=== PATIENT | female | born 1990 | race Caucasian/White ===

== ENCOUNTER → 2018-07-17 09:42 | Outpatient (CLI) | payer OTHER, SELFPAY ==
[2018-07-17 10:57] LABS: Add Manual Diff / Slide Review NO; Basophils Percent Auto 0.4 % (0-2); Eosinophils Percent Auto 0.7 % (2-4); Hematocrit 41.6 % (36-46); Mean Corpuscular HGB Conc 33.6 % (30-36); Mean Corpuscular Volume 89.2 fL (80-100); Monocytes Percent Auto 4.9 % (3-14); Neutrophils Absolute Auto 6700 /uL (3000-5900); Platelet Count 175 X10^3/uL (150-400); Red Blood Cell Count 4.67 X10^6/uL (4.0-5.2); Red Cell Distribution Width 12.7 % (11.6-14.8)
[2018-07-17 12:35] LABS: HIV 1 and 2 Antibody NEGATIVE (NEGATIVE); Hep C Virus Ab w/Reflex Quant NEGATIVE s/c (NEGATIVE)
[2018-07-17 18:32] LABS: Hepatitis B Surface Antigen NEGATIVE s/c (NEGATIVE)
[2018-07-18 14:04] LABS: HSV 2 IGG AB < 0.90 index (< 0.90); HSV1IGG < 0.90 index (< 0.90)
[2018-07-18 18:44] LABS: RPR Screen Nonreactive (Nonreactive)
== END ==
PROVIDERS: PCP Nurse Practitioner Family; Visit Provider Obstetrics & Gynecology
DX: Z34.91 Encounter for supervision of normal pregnancy, unspecified, first trimester (principal)
CPT/HCPCS: 36415; 80055; 86695; 86696; 86703; 86787; 86803; 86850; 86900; 86901; 87086

== ENCOUNTER 2018-09-11 15:20 | Emergency (ER) | payer OTHER, SELFPAY ==
[2018-09-11 15:36] VITALS: BP 99/54; PULSE 70; RESP 14; TEMP 36.7; O2SAT 97
--- NOTE | 2018-09-11 17:50 | ED_ITS ---
HPI - Nausea/Vomiting/Diarrhea <EBEN Lyman - Last Filed: 09/11/18 21:37> General Chief complaint: Nausea/Vomiting/Diarrhea Stated complaint: NON STOP DIARRHEA Time Seen by Provider: 09/11/18 17:05 Source: patient Mode of arrival: ambulatory Limitations: no limitations History of Present Illness HPI Narrative: 28-year-old female that is currently approximately 16 weeks is 2 para 1 here for complaint of diarrhea over the past 2 days. She denies any abdominal pain. No fevers no chills. No urinary symptoms. She denies any nausea vomiting. Positive p.o. intake that she is tolerating well. She denies any changes in diet. No recent travel. She denies any contacts with similar symptoms. No other concerns or complaints at this timeframe. MD complaint: diarrhea Related Data Home Medications Medication Instructions Recorded Confirmed 1 tab PO DAILY 07/17/18 09/11/18 vitamin,calcium,tfqhmeua-qmzn-ogomv acid tablet Allergies Allergy/AdvReac Type Severity Reaction Status Date / Time pecan nut [PECAN NUT] Allergy Unknown Verified 09/11/18 15:39 walnut [WALNUT] Allergy Unknown Verified 09/11/18 15:39 Review of Systems <EBEN Lyman - Last Filed: 09/11/18 21:37> Constitutional Denies chills, Denies fever(s), Denies lethargy and Denies weakness Eyes Denies change in vision, Denies eye discharge, Denies irritation and Denies loss of vision ENT Ears, Nose, Mouth, and Throat: Denies change in voice, Denies neck pain and Denies sore throat Cardiovascular Denies chest pain, Denies irregular heart rhythm, Denies lightheadedness, Denies palpitations, Denies dyspnea, Denies dyspnea on exertion and Denies orthopnea Respiratory Denies cough, Denies dyspnea, Denies dyspnea on exertion and Denies wheezing Gastrointestinal Gastrointestinal: Reports diarrhea Genitourinary Denies hematuria, Denies flank pain, Denies urinary incontinence and Denies urinary urgency Musculoskeletal Denies neck pain Integumentary/Breasts Denies pruritus, Denies erythema, Denies rash and Denies wounds Neurologic Denies confusion, Denies loss of vision and Denies weakness Psychiatric Denies anxiety, Denies confusion, Denies depression, Denies homicidal ideation and Denies suicidal ideation Endocrine Denies palpitations Hematologic/Lymphatic Denies easy bruising Allergic/Immunologic Denies wheezing Exam <EBEN Lyman - Last Filed: 09/11/18 21:37> Initial Vital Signs Initial Vital Signs: Vital Signs Temperature 98.1 F 09/11/18 15:36 Pulse Rate 70 09/11/18 15:36 Respiratory Rate 14 09/11/18 15:36 Blood Pressure 99/54 L 09/11/18 15:36 Pulse Oximetry 97 09/11/18 15:36 Const General: cooperative and well developed Nutritional Appearance: well nourished Orientation: alert, awake, oriented x3 and not confused HENLA Mouth: oral mucosae normal and moist mucous membranes Eyes Conjunctivae: conjunctivae normal Sclera: sclerae normal Pupils: PERRL EOM: EOM intact bilaterally Resp Effort & Inspection: normal respiratory effort, able to speak in complete sentences, no respiratory distress and no use of accessory muscles Auscultation: clear to auscultation bilaterally, no rales, no rhonchi and no wheezes Cardio Rate: regular rate Rhythm: regular rhythm Heart Sounds: no click, no gallops, no murmurs and no rubs Pulses: normal peripheral pulses GI Inspection: non-distended Palpation: soft, no hepatosplenomegaly, No guarding, No pulsatile mass and No tender Auscultation: normal bowel sounds General: No CVA tenderness Skin General: no rashes or lesions noted, No jaundice and No petechiae Neuro General: alert, oriented x3, gait normal and no focal motor deficits Speech: speech normal <Antoine Klein DO - Last Filed: 09/13/18 03:52> Initial Vital Signs Initial Vital Signs: Vital Signs Temperature 98.1 F 09/11/18 15:36 Pulse Rate 70 09/11/18 15:36 Respiratory Rate 14 09/11/18 15:36 Blood Pressure 99/54 L 09/11/18 15:36 Pulse Oximetry 97 09/11/18 15:36 Course <EBEN Lyman - Last Filed: 09/11/18 21:37> Vital Signs - 8 hr 09/11/18 15:36 Temperature 98.1 F Pulse Rate 70 Respiratory Rate 14 Blood Pressure 99/54 L Pulse Oximetry 97 <Antoine Klein DO - Last Filed: 09/13/18 03:52> Vital Signs - 8 hr 09/11/18 15:36 Temperature 98.1 F Pulse Rate 70 Respiratory Rate 14 Blood Pressure 99/54 L Pulse Oximetry 97 MDM - Nausea/Vomiting/Diarrhea <EBEN Lyman - Last Filed: 09/11/18 21:37> Lab Data Urine Dip Bedside Urine Glucose Negative Bedside Urine Bilirubin - Negative Bedside Urine Ketone - Negative Urine Specific [place] 1.010 Bedside Urine Occult Blood - Negative Bedside Urine pH 7.5 Bedside Urine Protein - Negative Bedside Urine Urobilinogen - Negative Bedside Urine Nitrite - Negative Bedside Urine Leukocytes - Negative Esterase MDM Narrative Medical decision making narrative: Urinalysis was negative for urinary tract infection. Final signs or normal. Not appreciate any signs of dehydration at this time. She is able tolerate p.o. fluids. Discussed risks versus reward for treating acute diarrhea with loperamide patient decided that she would rather suffer the symptoms of the diarrhea then using medication at this time. heart tones were obtained and were normal. Signs and symptoms presents as a viral illness at this point. Follow up with primary care provider/Ob in the next several days for re-evaluation. For any worsening symptoms return emergency room. <Antoine Klein DO - Last Filed: 09/13/18 03:52> Lab Data Urine Dip Bedside Urine Glucose Negative Bedside Urine Bilirubin - Negative Bedside Urine Ketone - Negative Urine Specific [place] 1.010 Bedside Urine Occult Blood - Negative Bedside Urine pH 7.5 Bedside Urine Protein - Negative Bedside Urine Urobilinogen - Negative Bedside Urine Nitrite - Negative Bedside Urine Leukocytes - Negative Esterase Discharge Plan Departure Patient Disposition: Home Clinical Impression: Diarrhea Discharge Date/Time: 09/11/18 19:32 Interventions: ED Discharge Assessment Last Done: 09/11/18 19:32 Instructions: Diarrhea Activity Restrictions/Additional Instructions: Urinalysis today was unremarkable. Sinus symptoms presents as viral illness. Plenty of fluids and rest. Follow up with her primary care provider in the next several days for re-evaluation. For any worsening symptoms return to the emergency room. Prescriptions: No Action prenat.vits,juan josé,[id number] tablet 1 tab PO DAILY RF: 0 Referrals: Aiyana Ba ARNP [Primary Care Provider] - <Antoine Klein DO - Last Filed: 09/13/18 03:52> Cosign ED Attending Cosignature Attestation: I was immediately available in the department for consultation. Documentation has been reviewed. I agree with assessment and plan.
== END 2018-09-11 19:32 | disposition home or self-care (01) ==
PROVIDERS: Emergency Provider Nurse Practitioner Family; PCP Nurse Practitioner Family
DX: R19.7 Diarrhea, unspecified (principal)
CPT/HCPCS: 81003; 99283

== ENCOUNTER → 2018-09-27 11:55 | Outpatient (CLI) | payer OTHER, SELFPAY ==
[2018-10-02 10:39] LABS: AFP, Serum 37.1 ng/mL; Calc Gestational Age 18.6; Cigarette Smoker N; Donated Egg NOT GIVEN; Donor Egg Age NOT GIVEN; Inhibin A, Dimeric 118 pg/mL; Maternal Weight 150 lbs; Number of Fetuses 1; Previous Pregnancy Down Syndro NOT GIVEN; hCG, MoM 0.73; hCG, Serum 16.4 IU/mL
== END ==
PROVIDERS: PCP Physician Assistant; Visit Provider Obstetrics & Gynecology
DX: O34.219 Maternal care for unspecified type scar from previous cesarean delivery (principal); Z3A.18 18 weeks gestation of pregnancy
CPT/HCPCS: 36415; 82105; 82677; 84702; 86336

== ENCOUNTER → 2018-09-29 14:05 | Outpatient (CLI) | payer OTHER, SELFPAY ==
--- NOTE | 2018-09-29 14:06 | DI.US.S_ITS ---
PROCEDURE: US OB >= 14 WEEKS FETUS INDICATIONS: ANATOMY SURVEY OUTSIDE/PRIOR DATING DATA: Last menstrual period (LMP): 05/21/18. LMP-based estimated date of delivery (SAKINA): 02/24/19. First dating scan (date and location): 08/01/18. Estimated date of delivery (SAKINA) from first dating scan: 02/27/19. TECHNIQUE: Real-time scanning was performed of the fetus, with image documentation and biometric measurements. Endovaginal scanning: No COMPARISON: [email or web address], , OB >= 14 WEEKS FETUS, 09/27/2018, 11:25. FINDINGS: General: A single living intrauterine gestation is present. Presentation: Breech. Placenta: Placental position is anterior, and low lying with the inferior margin of the placenta 1.8 cm above the internal cervical os. Amniotic fluid index: 9.1 cm, normal range is 5-24 cm. heart rate: 137 beats per minute. Maternal cervical canal: 3.2 cm long. biometrics: Biparietal diameter: 18 weeks 2 days Head circumference: 18 weeks 1 day Abdominal circumference: 18 weeks 4 days Femur length: 18 weeks 3 days Estimated gestational age from initial scan: 18 weeks 3 days Composite gestational age from present scan: 18 weeks 3 days Estimated weight and percentile: 242 g; 48 percentile Measurement variability for biometric dating: +/- 7 days from 14 weeks to 15 weeks 6 days gestation, +/- 10 days from 16 weeks to 21 weeks 6 days gestation, +/- 2 weeks from 22 weeks to 27 weeks 6 days gestation, +/- 3 weeks for 28 weeks gestation or later. weight reference: 4500 g or EFW >90/95% is considered macrosomia or large for gestational age. EFW <10% is small for gestational age. EFW 5% or less is considered intra-uterine growth restriction. Anatomic survey: Neuro: Ventricles are non-dilated at less than 10 mm. Cisterna magna is normal at 3-11 mm. Cerebellum is normal in size and morphology. Nuchal skin fold: Normal at less than 6 mm between 14-21 weeks gestational age. Face: Nose and lips, facial profile are normal. Spine: No evidence for spina bifida. Heart: 4-chambered heart is present, with normal ventricular outflow tracts. Diaphragm: Diaphragm is intact. Stomach: Left-sided stomach is present. Kidneys: No hydronephrosis. Normal is less than 5 mm in 2nd trimester, less than 7 mm in 3rd trimester. Cord: 3-vessel cord has orthotopic insertion. Bladder: Normal in size. Extremities: All 4 extremities identified. IMPRESSION: Single living IUP redemonstrated and normal interval growth. Normal anatomic survey. Dictated by: Kushal MCGUIRE Interpreted: Speedy Mcgill MD on 09/29/2018 at 15:58 Approved by: Speedy Mcgill M.D. on 09/29/2018 at 17:24
== END ==
PROVIDERS: PCP Physician Assistant; Visit Provider Obstetrics & Gynecology
DX: Z34.82 Encounter for supervision of other normal pregnancy, second trimester (principal); Z36.89 Encounter for other specified antenatal screening; Z3A.18 18 weeks gestation of pregnancy
CPT/HCPCS: 76811

== ENCOUNTER 2018-11-08 17:24 | Emergency (ER) | payer OTHER, SELFPAY ==
[2018-11-08 17:35] VITALS: BP 101/66; PULSE 118; RESP 17; TEMP 36.6; O2SAT 99; BMI 22.8
--- NOTE | 2018-11-08 18:10 | ED.SOB ---
HPI - SOB/Dyspnea General Chief Complaint: Shortness of Breath/Dyspnea Stated Complaint: bad ear infection, 20 wks+ prg, high hr, sob Time Seen by Provider: 11/08/18 18:09 Source: patient Mode of arrival: ambulatory Limitations: no limitations History of Present Illness Patient is a 28-year-old G 2 P 1 sent over for evaluation of possible pulmonary embolism. Patient states that she has had coughing and shortness of breath for the past several days. She did does have some recent travel. Had a flu test couple days ago that was negative. Talked with her OB provider who told her that she should come to the emergency department for evaluation of a possible clot. Patient denies any chest pain. No lower extremity swelling. No abdominal pain or vaginal bleeding or loss of fluid. Related Data Home Medications Medication Instructions Recorded Confirmed 1 tab PO DAILY 07/17/18 09/11/18 vitamin,calcium,dfnuwcwj-tbkp-bcuxa acid tablet Previous Rx's Medication Instructions Recorded oseltamivir [Tamiflu] 75 mg PO Q12H 5 Days #10 cap 11/08/18 Allergies Allergy/AdvReac Type Severity Reaction Status Date / Time pecan nut [PECAN NUT] Allergy Unknown Verified 11/08/18 17:35 walnut [WALNUT] Allergy Unknown Verified 11/08/18 17:35 Review of Systems Constitutional Reports chills and Reports fatigue Cardiovascular Denies chest pain, Denies palpitations and Reports dyspnea Respiratory Reports cough and Reports dyspnea Gastrointestinal Gastrointestinal: Denies abdominal pain, Denies nausea and Denies vomiting Genitourinary Denies dysuria and Denies vaginal discharge Musculoskeletal Denies myalgias and Denies arthralgias Integumentary/Breasts Denies lesions and Denies rash Neurologic Denies behavioral changes Psychiatric Denies behavioral changes Endocrine Reports fatigue and Denies palpitations Hematologic/Lymphatic Denies easy bleeding and Denies easy bruising [facility] Medical History Healthy adult (Acute) Social History Smoking Status: Never smoker Social History Smoking Status: Never smoker Exam Initial Vital Signs Initial Vital Signs: Vital Signs Temperature 97.9 F 11/08/18 17:35 Pulse Rate 118 H 11/08/18 17:35 Respiratory Rate 17 11/08/18 17:35 Blood Pressure 101/66 11/08/18 17:35 Pulse Oximetry 99 11/08/18 17:35 Const General: cooperative, healthy appearing, comfortable, well developed, well groomed and No acute distress Orientation: alert, awake and oriented x3 HENMT Head: normal to inspection and normocephalic Resp Effort & Inspection: normal respiratory effort, not labored, no respiratory distress, no retractions and not tachypneic Auscultation: clear to auscultation bilaterally Cardio Rate: tachycardic Rhythm: regular rhythm Pulses: radial pulses present GI Palpation: No tender Skin Lesions: no lesions Rashes: no rashes Neuro General: alert, awake and oriented x3 Cognition: normal cognition Speech: speech normal Extrem General: normal to inspection and capillary refill normal Psych Appearance: grossly normal and well kempt Course Orders Ordered: ED Orders 11/08/18 19:30 Basic Metabolic Panel Stat Complete Blood Count AUTO DIFF Stat Influenza A and B by PCR Rapid Stat 11/08/18 19:57 XR chest 1V Stat Discontinued Medications Acetaminophen (Tylenol) 650 mg PO NOW ONE Stop: 11/08/18 19:36 Last Admin: 11/08/18 19:47 Dose: 650 mg Sodium Chloride (Normal Saline 0.9%) 1,000 mls @ 1,000 mls/hr IV BOLUS ONE Stop: 11/08/18 19:31 Last Infusion: 11/08/18 21:45 Dose: 0 mls/hr Admin: 11/08/18 19:48 Dose: 1,000 mls/hr Oseltamivir Phosphate (Tamiflu) 75 mg PO NOW ONE Stop: 11/08/18 20:20 Last Admin: 11/08/18 20:37 Dose: 75 mg Vital Signs - 8 hr 11/08/18 21:45 Temperature 100 F H Pulse Rate 87 Respiratory Rate 19 Blood Pressure 106/51 L Pulse Oximetry 97 MDM - SOB/Dyspnea Lab Data Attestation: I reviewed the patient's lab results. Result diagrams: 11/08/18 19:30 11/08/18 19:30 Lab Results 11/08/18 11/08/18 11/08/18 Range/Units 19:30 19:30 19:30 WBC 16.1 H (4.5-11.0) X10^3/uL RBC 4.50 (4.0-5.2) X10^6/uL Hgb 13.7 (12.0-16.0) g/dL Hct 40.2 (36-46) % MCV 89.3 (80-100) fL MCH 30.4 (26-34) PG MCHC 34.1 (30-36) % RDW 13.2 (11.6-14.8) % Plt Count 156 (150-400) X10^3/uL Neut % (Auto) 88.6 H (50-75) % Lymph % (Auto) 6.4 L (25-40) % [place] % (Auto) 4.7 (3-14) % Eos % (Auto) 0.0 L (2-4) % Baso % (Auto) 0.3 (0-2) % Neut # (Auto) 40318 H (5458-6853) /uL Lymph # (Auto) 1000 L (1733-9861) /uL [place] # (Auto) 700 (0-900) /uL Eos # (Auto) 0 (0-450) /uL Baso # (Auto) 0 (0-100) /uL Sodium 135 L (137-145) mmol/L Potassium 3.6 (3.4-5.1) mmol/L Chloride 101 (98-107) mmol/L Carbon Dioxide 22 (22-32) mmol/L BUN 8 (7-17) mg/dL Creatinine 0.70 (0.52-1.04) mg/dL Estimated GFR > 60.0 (>60) mL/min BUN/Creatinine Ratio 11.4 (6-22) Glucose 110 H (70-100) mg/dL Calcium 9.2 (8.4-10.2) mg/dL Influenza A & B (PCR) Positive, type a A (Negative) Imaging Data Chest x-ray: Radiologist's impression: [address] [address] XRay Report Signed Patient: Slava Mansfield#: [id number] : 1990Acct:[id number] Age/Sex: 28 / FDate of Service: 11/08/18 Loc: ED Accession Number: [id number] Procedure: XR chest 1V Ordering Provider: Irineo Nichole D.O. PROCEDURE: XR CHEST 1V INDICATIONS: Fever, cough, flu positive TECHNIQUE: One view of the chest was acquired. COMPARISON: None. FINDINGS: Surgical changes and devices: None. Lungs and pleura: Mild peribronchial thickening in the mid to lower lung pope. No consolidations. No pleural effusions or pneumothorax. Mediastinum: Mediastinal contours appear normal. Heart size is normal. Bones and chest wall: No suspicious bony lesions. Overlying soft tissues appear unremarkable. IMPRESSION: Changes of bronchitis. No dense consolidation to suggest pneumonia Dictated by: Mary Taylor M.D. on 11/08/2018 at 20:49 Approved by: Mary Taylor M.D. on 11/08/2018 at 20:50 ECG Data Attestation: I personally reviewed and interpreted this ECG as follows: Prior ECG tracings: not available for review Interpretation: Sinus rhythm Ventricular rate of 97 Normal axis Normal QRS Normal QTC No ST T wave changes MDM Narrative Medical decision making narrative: Had a discussion with the patient upon arrival regarding the risks and benefits of a CTA for evaluation of a pulmonary embolism. She is not in any respiratory distress but does have some shortness of breath and is and has had recent travel. While waiting for her lab tests returned in order to obtain the CTA the patient's flu test came back positive. I went back and talked to the patient. I do suspect that her symptoms today are caused by the flu. I feel that pulmonary embolism is unlikely. I informed the patient that if I had seen her in the department as she had not been I would not have obtained a CTA given her symptoms and the positive flu test. I did inform her that she was at higher risk because of being however in the setting of the flu and the fact that she was hemodynamically stable, and not hypoxic it would not be be unreasonable to hold on a CTA to avoid the radiation exposure to the baby. Patient agreed. Her is at bedside his discussions. We held on a CTA. She was given Tamiflu and a prescription for Tamiflu given her status. We did obtain a chest x-ray to evaluate for pneumonia which was not the case. The patient was given return precautions. There were no other issues with regard to the . She and her both expressed understanding and agreement with plan. Discharge Plan Departure Patient Disposition: Home Clinical Impression: Influenza Otitis media Qualifiers: Otitis media type: serous Chronicity: acute Laterality: bilateral Recurrence: not specified as recurrent Qualified Code(s): H65.03 - Acute serous otitis media, bilateral Discharge Date/Time: 11/08/18 21:45 Interventions: ED Discharge Assessment Last Done: 11/08/18 21:45 Instructions: Influenza Activity Restrictions/Additional Instructions: Take the Tamiflu as directed. You can also take Tylenol. Do not take ibuprofen/Motrin. Increase your fluid intake. Contact your OB doctor tomorrow. Also recommend you take a decongestant such as Claritin or Nohemi or Zyrtec. Return to the emergency department for any new or worsening symptoms Prescriptions: New oseltamivir [Tamiflu] 75 mg capsule 75 mg PO Q12H 5 Days Qty: 10 RF: 0 No Action prenat.vits,juan josé,dwe-[id number] tablet 1 tab PO DAILY RF: 0 Referrals: Evelin Thao PA-C [Primary Care Provider] -
[2018-11-08 19:39] LABS: Add Manual Diff / Slide Review NO; Basophils Absolute Auto 0 /uL (0-100); Basophils Percent Auto 0.3 % (0-2); Eosinophils Absolute Auto 0 /uL (0-450); Hematocrit 40.2 % (36-46); Hemoglobin 13.7 g/dL (12.0-16.0); Lymphocytes Absolute Auto 1000 /uL (1100-4500); Lymphocytes Percent Auto 6.4 % (25-40); Mean Corpuscular HGB Conc 34.1 % (30-36); Mean Corpuscular Hemoglobin 30.4 PG (26-34); Mean Corpuscular Volume 89.3 fL (80-100); Monocytes Absolute Auto 700 /uL (0-900); Monocytes Percent Auto 4.7 % (3-14); Neutrophils Absolute Auto 14200 /uL (1500-7000); Neutrophils Percent Auto 88.6 % (50-75); Platelet Count 156 X10^3/uL (150-400); Red Cell Distribution Width 13.2 % (11.6-14.8); White Blood Cell Count 16.1 X10^3/uL (4.5-11.0)
[2018-11-08 19:47] VITALS: TEMP 37.9
[2018-11-08] MEDS: ACETAMINOPHEN 325 MG TABLET 650 MG PO (19:47)
[2018-11-08] MEDS: SODIUM CHLORIDE 0.9% 1,000 ML 1000 ML IV (19:48)
[2018-11-08 19:51] LABS: BUN Creatinine Ratio 11.4 (6-22); Blood Urea Nitrogen 8 mg/dL (7-17); Calcium 9.2 mg/dL (8.4-10.2); Carbon Dioxide 22 mmol/L (22-32); Chloride 101 mmol/L (98-107); Estimated Glomerular Filt Rate > 60.0 mL/min (>60); Glucose 110 mg/dL (70-100); HEMOLYSIS < 15 (0-50); Potassium 3.6 mmol/L (3.4-5.1); Sodium 135 mmol/L (137-145)
--- NOTE | 2018-11-08 19:57 | DI.RAD.S_ITS ---
PROCEDURE: XR CHEST 1V INDICATIONS: Fever, cough, flu positive TECHNIQUE: One view of the chest was acquired. COMPARISON: None. FINDINGS: Surgical changes and devices: None. Lungs and pleura: Mild peribronchial thickening in the mid to lower lung pope. No consolidations. No pleural effusions or pneumothorax. Mediastinum: Mediastinal contours appear normal. Heart size is normal. Bones and chest wall: No suspicious bony lesions. Overlying soft tissues appear unremarkable. IMPRESSION: Changes of bronchitis. No dense consolidation to suggest pneumonia Dictated by: Mary Taylor M.D. on 11/08/2018 at 20:49 Approved by: Mary Taylor M.D. on 11/08/2018 at 20:50
[2018-11-08] MEDS: OSELTAMIVIR 75 MG CAPSULE PO (20:37)
[2018-11-08 21:45] VITALS: BP 106/51; PULSE 87; RESP 19; TEMP 37.7; TEMP 37.8; O2SAT 97
== END 2018-11-08 21:45 | disposition home or self-care (01) ==
PROVIDERS: Emergency Provider Emergency Medicine; PCP Physician Assistant
DX: J11.1 Influenza due to unidentified influenza virus with other respiratory manifestations (principal); H65.03 Acute serous otitis media, bilateral
CPT/HCPCS: 36591; 71045; 80048; 85025; 87400; 93005; 96360; 96361; 99283; 99285

== ENCOUNTER → 2018-11-20 14:26 | Outpatient (CLI) | payer OTHER, SELFPAY ==
[2018-11-20 16:35] LABS: Hematocrit 35.7 % (36-46); Hemoglobin 12.1 g/dL (12.0-16.0)
[2018-11-20 17:01] LABS: GTT (PREG) 1 Hour PP 50gm Dose 165 mg/dL (76-139)
== END ==
PROVIDERS: PCP Physician Assistant; Visit Provider Obstetrics & Gynecology
DX: Z34.82 Encounter for supervision of other normal pregnancy, second trimester (principal)
CPT/HCPCS: 36415; 82950; 85014; 85018

== ENCOUNTER → 2018-11-27 08:55 | Outpatient (CLI) | payer OTHER, SELFPAY ==
[2018-11-27 10:05] LABS: Glucose Fasting Gestational 74 mg/dL (76-95)
[2018-11-27 11:35] LABS: Glucose 1 Hour Gest 162 mg/dL (76-180)
[2018-11-27 12:18] LABS: Glucose Tol Interp,Gestational INTERPRETATION
[2018-11-27 15:49] LABS: Glucose 3 Hour Gest 117 mg/dL (76-140)
[2018-11-27 20:17] LABS: Glucose 2 Hour Gest 126 mg/dL (76-155)
== END ==
PROVIDERS: PCP Physician Assistant; Visit Provider Obstetrics & Gynecology
DX: O99.810 Abnormal glucose complicating pregnancy (principal)
CPT/HCPCS: 36415; 82951; 82952

== ENCOUNTER 2018-12-27 12:09 | Emergency (ER) | payer OTHER, SELFPAY ==
[2018-12-27] VITALS (7 sets, daily range): BP systolic 91–143; BP diastolic 49–81; PULSE 62–91; RESP 14–21; TEMP 36.7; O2SAT 93–99; BMI 23.2
[2018-12-27 12:59] LABS: Add Manual Diff / Slide Review NO; Basophils Absolute Auto 0 /uL (0-100); Basophils Percent Auto 0.3 % (0-2); Eosinophils Absolute Auto 100 /uL (0-450); Eosinophils Percent Auto 0.3 % (2-4); Hematocrit 37.8 % (36-46); Hemoglobin 12.6 g/dL (12.0-16.0); Lymphocytes Absolute Auto 1100 /uL (1100-4500); Lymphocytes Percent Auto 6.6 % (25-40); Mean Corpuscular HGB Conc 33.4 % (30-36); Mean Corpuscular Hemoglobin 29.8 PG (26-34); Mean Corpuscular Volume 89.2 fL (80-100); Monocytes Absolute Auto 800 /uL (0-900); Monocytes Percent Auto 4.9 % (3-14); Neutrophils Absolute Auto 14800 /uL (1500-7000); Neutrophils Percent Auto 87.9 % (50-75); Platelet Count 192 X10^3/uL (150-400); Red Blood Cell Count 4.24 X10^6/uL (4.0-5.2); Red Cell Distribution Width 13.5 % (11.6-14.8); White Blood Cell Count 16.8 X10^3/uL (4.5-11.0)
[2018-12-27 13:07] LABS: Prothrombin Time 11.3 SECONDS (10.1-12.7)
[2018-12-27 13:09] LABS: PTT Partial Thromboplastin Tim 24 SECONDS (26.4-36.2)
[2018-12-27 13:12] LABS: Alanine Aminotransferase 46 IU/L (9-52); Albumin 4.1 g/dL (3.5-5.0); Albumin Globulin Ratio 1.3 (1.0-2.8); Alkaline Phosphatase 123 U/L (38-126); Aspartate Aminotransferase 30 IU/L (14-36); BUN Creatinine Ratio 13.3 (6-22); Bilirubin Total 0.3 mg/dL (0.2-1.3); Blood Urea Nitrogen 8 mg/dL (7-17); Calcium 9.5 mg/dL (8.4-10.2); Carbon Dioxide 22 mmol/L (22-32); Chloride 106 mmol/L (98-107); Creatine Kinase 36 U/L (30-135); Estimated Glomerular Filt Rate > 60.0 mL/min (>60); Globulin 3.2 g/dL (1.7-4.1); Glucose 89 mg/dL (70-100); HEMOLYSIS < 15 (0-50); Lipase 62 U/L (23-300); Potassium 3.7 mmol/L (3.4-5.1); Sodium 139 mmol/L (137-145); Total Protein 7.3 g/dL (6.3-8.2)
[2018-12-27 13:23] LABS: Troponin I < 0.012 ng/mL (0.01-0.034)
--- NOTE | 2018-12-27 14:01 | ED.CHESTPAIN ---
HPI - Chest Pain General Chief Complaint: Chest Pain Stated Complaint: Chest Pain Time Seen by Provider: 12/27/18 13:51 Source: patient Mode of arrival: ambulatory Limitations: no limitations History of Present Illness HPI narrative: Patient complains of intermittent left parasternal chest past pain that has been going on intermittently for the last several days. Patient states the pain can last from minutes to a couple of hours. She denies nausea vomiting. No shortness of breath. She states sometimes the pain is worse with the deep breath. She denies cough or fever. No swelling or pain in her lower extremities. She is 32 weeks , and has had no complications with the . She is known to have gallstones, but she states as long as she keeps her diet low-fat, the gallstones do not bother her. Patient denies vomiting or diarrhea. She does not have any history of DVT herself, and no family history. Patient states the baby has been moving. No vaginal bleeding for the patient. No known cardiac problems. No other complaints at this time. Patient states she has been fairly active throughout her , and has been able to get out and do some walking. She also has a toddler, which keeps her busy. Related Data Home Medications Medication Instructions Recorded Confirmed 1 tab PO DAILY 07/17/18 12/27/18 vitamin,calcium,josnxsgk-cwcy-ckuvx acid tablet albuterol sulfate 1 puff INHALATION Q4-6H PRN 12/27/18 12/27/18 loratadine [Claritin] 10 mg PO DAILY PRN 12/27/18 12/27/18 Previous Rx's Medication Instructions Recorded fluconazole 150 mg tablet 150 mg PO ONCE #1 tab 11/22/18 Allergies Allergy/AdvReac Type Severity Reaction Status Date / Time pecan nut [PECAN NUT] Allergy Unknown Verified 12/27/18 12:21 walnut [WALNUT] Allergy Unknown Verified 12/27/18 12:21 Review of Systems Constitutional Denies chills, Denies fever(s), Denies lethargy and Denies weakness Eyes Denies change in vision, Denies eye discharge, Denies irritation and Denies loss of vision ENT Ears, Nose, Mouth, and Throat: Denies change in voice, Denies neck pain and Denies sore throat Cardiovascular Reports chest pain, Denies irregular heart rhythm, Denies lightheadedness, Denies palpitations, Denies dyspnea, Denies dyspnea on exertion and Denies orthopnea Respiratory Denies cough, Denies dyspnea, Denies dyspnea on exertion and Denies wheezing Gastrointestinal Gastrointestinal: Denies abdominal pain, Denies change in bowel habits, Denies diarrhea, Denies nausea and Denies vomiting Genitourinary Denies hematuria, Denies flank pain, Denies urinary incontinence and Denies urinary urgency Musculoskeletal Denies neck pain Integumentary/Breasts Denies pruritus, Denies erythema, Denies rash and Denies wounds Neurologic Denies confusion, Denies loss of vision and Denies weakness Psychiatric Denies anxiety, Denies confusion, Denies depression, Denies homicidal ideation and Denies suicidal ideation Endocrine Denies palpitations Hematologic/Lymphatic Denies easy bruising Allergic/Immunologic Denies wheezing [facility] Medical History (Updated 12/27/18 @ 15:40 by Eva Lemons MD) (Acute) Healthy adult (Acute) Social History Smoking Status: Never smoker Social History Smoking Status: Never smoker Exam Initial Vital Signs Initial Vital Signs: Vital Signs Temperature 98.0 F 12/27/18 12:15 Pulse Rate 89 12/27/18 12:15 Respiratory Rate 16 12/27/18 12:15 Blood Pressure 114/79 12/27/18 12:15 Pulse Oximetry 99 12/27/18 12:15 Const General: cooperative and well developed Nutritional Appearance: well nourished Orientation: alert, awake, oriented x3 and not confused [facility] Head: normocephalic and atraumatic Ears: external ears normal and TM's normal bilaterally Nose: external nose normal and No nasal discharge Face and sinus: sinuses nontender, face symmetric, no sinus tenderness and No dry mucous membranes Mouth: oral mucosae normal and moist mucous membranes Teeth and gingiva: dentition normal Throat: tonsils normal and uvula midline Eyes General: appearance normal, both eyes and all related structures Eyelids: eyelids normal Conjunctivae: conjunctivae normal Sclera: sclerae normal Pupils: PERRL EOM: EOM intact bilaterally Neck Neck: normal visual inspection, trachea midline, No lymphadenopathy, No midline deformity and No JVD Lymphatic: No lymphedema Chest Chest: normal inspection of the chest Resp Effort & Inspection: normal respiratory effort, able to speak in complete sentences, no respiratory distress and no use of accessory muscles Auscultation: clear to auscultation bilaterally, no rales, no rhonchi and no wheezes Cardio Rate: regular rate Rhythm: regular rhythm Heart Sounds: no click, no gallops, no murmurs and no rubs Pulses: normal peripheral pulses GI Inspection: non-distended Palpation: soft, no hepatosplenomegaly, No guarding, No pulsatile mass and No tender Auscultation: normal bowel sounds Other: Gravid, with movement Back/Spine/Pelvis Back: No CVA tenderness Cervical Spine: cervical ROM normal and No pain with cervical ROM Thoracic/Lumbar Spine: thoracic and lumbar spine normal to inspection Skin General: no rashes or lesions noted, No jaundice and No petechiae Neuro General: alert, oriented x3, gait normal and no focal motor deficits Speech: speech normal Extrem General: full ROM, no clubbing, cyanosis or edema, no pedal edema and no calf tenderness Psych Appearance: well kempt Mental Status: mental status grossly normal Attitude: cooperative Thought Content: normal and suicidality Judgment: judgment good Course Course Narrative: Patient was worked up with heart tones, EKG, and ultrasound lower extremities. I explained to her that at this point, her pain sounds most consistent with a musculoskeletal etiology, given the lack of fever, shortness of breath, and cough. She is at increased risk for DVT/PE, though she has not had any symptoms consistent with PE. As she is , and so as to avoid any unnecessary radiation to the fetus, the patient will have a DVT study done 1st. If this is positive, then further imaging of the chest will be pursued. Patient's vital signs are normal, and she is in no distress. Ultrasound of the lower extremities was negative. I did not find evidence of an emergent condition at this time, and feel that most likely, her symptoms were musculoskeletal in nature. We have discussed this, as well as symptomatic management at home. We have also discussed follow-up and the usual indications for return. Orders Ordered: ED Orders 12/27/18 12:36 EKG-12 Lead Stat 12/27/18 12:45 Complete Blood Count AUTO DIFF Stat Comprehensive Metabolic Panel Stat Lipase Stat Partial Thromboplastin Time Stat Prothrombin Time INR Stat Troponin & CK Cardiac Panel Stat Vital Signs - 8 hr 12/27/18 12:15 12/27/18 13:07 12/27/18 13:30 Temperature 98.0 F Pulse Rate 89 91 H 72 Respiratory Rate 16 20 21 Blood Pressure 114/79 Blood Pressure [Right Arm] 143/81 H 98/60 Pulse Oximetry 99 93 98 MDM - Chest Pain Medical Records Data Attestation: I reviewed the patient's medical records. Lab Data Attestation: I reviewed the patient's lab results. Result diagrams: 12/27/18 12:45 12/27/18 12:45 Lab Results 12/27/18 12/27/18 12/27/18 Range/Units 12:45 12:45 12:45 WBC 16.8 H (4.5-11.0) X10^3/uL RBC 4.24 (4.0-5.2) X10^6/uL Hgb 12.6 (12.0-16.0) g/dL Hct 37.8 (36-46) % MCV 89.2 (80-100) fL MCH 29.8 (26-34) PG MCHC 33.4 (30-36) % RDW 13.5 (11.6-14.8) % Plt Count 192 (150-400) X10^3/uL Neut % (Auto) 87.9 H (50-75) % Lymph % (Auto) 6.6 L (25-40) % [place] % (Auto) 4.9 (3-14) % Eos % (Auto) 0.3 L (2-4) % Baso % (Auto) 0.3 (0-2) % Neut # (Auto) 58384 H (0935-0226) /uL Lymph # (Auto) 1100 (9278-5647) /uL [place] # (Auto) 800 (0-900) /uL Eos # (Auto) 100 (0-450) /uL Baso # (Auto) 0 (0-100) /uL PT 11.3 (10.1-12.7) SECONDS INR 1.0 (0.9-1.3) APTT 24 L (26.4-36.2) SECONDS Sodium 139 (137-145) mmol/L Potassium 3.7 (3.4-5.1) mmol/L Chloride 106 (98-107) mmol/L Carbon Dioxide 22 (22-32) mmol/L BUN 8 (7-17) mg/dL Creatinine 0.60 (0.52-1.04) mg/dL Estimated GFR > 60.0 (>60) mL/min BUN/Creatinine Ratio 13.3 (6-22) Glucose 89 (70-100) mg/dL Calcium 9.5 (8.4-10.2) mg/dL Total Bilirubin 0.3 (0.2-1.3) mg/dL AST 30 (14-36) IU/L ALT 46 (9-52) IU/L Alkaline Phosphatase 123 (38-126) U/L Total Creatine Kinase 36 (30-135) U/L CK-MB (CK-2) TNP CK-MB (CK-2) Rel Index TNP Troponin I < 0.012 (0.01-0.034) ng/mL Total Protein 7.3 (6.3-8.2) g/dL Albumin 4.1 (3.5-5.0) g/dL Globulin 3.2 (1.7-4.1) g/dL Albumin/Globulin Ratio 1.3 (1.0-2.8) Lipase 62 (23-300) U/L Imaging Data Venous US: Radiologist's impression: PROCEDURE: US PERIPH VENOUS LOW EXTREM BI INDICATIONS: , CHEST PAIN, EVAL FOR DVT TECHNIQUE: Real-time imaging, as well as color and pulse Doppler interrogation, were performed of the deep veins of both legs from the inguinal ligament to the popliteal fossa. COMPARISON: None. FINDINGS: Right: The common femoral, femoral and popliteal veins are normally compressible, and free of intraluminal thrombus. Color and pulse Doppler demonstrate normal phasic intravascular flow. There is normal augmentation response to distal compression maneuver. Left: The common femoral, femoral and popliteal veins are normally compressible, and free of intraluminal thrombus. Color and pulse Doppler demonstrate normal phasic intravascular flow. There is normal augmentation response to distal compression maneuver. IMPRESSION: No evidence of deep venous thrombosis Dictated by: Speedy Mcgill M.D. on 12/27/2018 at 15:38 Approved by: Speedy Mcgill M.D. on 12/27/2018 at 15:38 Discharge Plan Departure Patient Disposition: Home Clinical Impression: Chest wall pain Qualifiers: Weeks of gestation: 32 weeks Qualified Code(s): Z3A.32 - 32 weeks gestation of Discharge Date/Time: 12/27/18 16:15 Interventions: ED Discharge Assessment Last Done: 12/27/18 16:15 Instructions: DI for Chest Pain Activity Restrictions/Additional Instructions: Your ultrasound shows no clots in your legs. Of the most likely potential causes of your chest pain, a blood clot in your lungs would be the most concerning possibility. However, this is unlikely to be the case with your ultrasound being negative for a source of clot. The symptoms you are having, as well as the symptoms you are not having, in addition to your normal vital signs and physical exam, rule out other concerning potential causes of chest pain. As such, your chest pain is most likely secondary to a chest wall source. This could be due to altered posture due to your late stage , or due to the pressure from the baby on your ribs. This usually resolves on its own, but may not completely resolve until after you have given . You may take safe medications, such as Tylenol, to help with the pain. Prescriptions: No Action prenat.vits,juan josé,ggr-qtpz-eluuj tablet 1 tab PO DAILY RF: 0 fluconazole [Diflucan] 150 mg tablet 150 mg PO ONCE Qty: 1 RF: 0 albuterol sulfate 90 mcg/actuation Hfa Aerosol Inhaler 1 puff INHALATION Q4-6H PRN (Reason: Allergic Symptoms) RF: 0 loratadine [Claritin] 10 mg Tablet 10 mg PO DAILY PRN (Reason: Allergic Symptoms) RF: 0 Referrals: Evelin Thao PA-C [Primary Care Provider] -
--- NOTE | 2018-12-27 14:15 | DI.US.S_ITS ---
PROCEDURE: US PERIPH VENOUS LOW EXTREM BI INDICATIONS: , CHEST PAIN, EVAL FOR DVT TECHNIQUE: Real-time imaging, as well as color and pulse Doppler interrogation, were performed of the deep veins of both legs from the inguinal ligament to the popliteal fossa. COMPARISON: None. FINDINGS: Right: The common femoral, femoral and popliteal veins are normally compressible, and free of intraluminal thrombus. Color and pulse Doppler demonstrate normal phasic intravascular flow. There is normal augmentation response to distal compression maneuver. Left: The common femoral, femoral and popliteal veins are normally compressible, and free of intraluminal thrombus. Color and pulse Doppler demonstrate normal phasic intravascular flow. There is normal augmentation response to distal compression maneuver. IMPRESSION: No evidence of deep venous thrombosis Dictated by: Speedy Mcgill M.D. on 12/27/2018 at 15:38 Approved by: Speedy Mcgill M.D. on 12/27/2018 at 15:38
== END 2018-12-27 16:15 | disposition home or self-care (01) ==
PROVIDERS: Emergency Provider Emergency Medicine; Family Provider Obstetrics & Gynecology; PCP Physician Assistant
DX: R07.89 Other chest pain (principal); Z3A.32 32 weeks gestation of pregnancy
CPT/HCPCS: 36591; 80053; 82550; 83690; 84484; 85025; 85610; 85730; 93005; 93010; 93970; 99283; 99285

== ENCOUNTER 2019-01-14 15:16 | Outpatient (CLI) | payer OTHER, SELFPAY | END 2019-01-14 16:00 | disposition home or self-care (01) | LOC: OB 01-15 14:24 | PROVIDERS: Family Provider Obstetrics & Gynecology; PCP Physician Assistant | DX: O26.893 Other specified pregnancy related conditions, third trimester (principal); R10.2 Pelvic and perineal pain; Z3A.34 34 weeks gestation of pregnancy | CPT/HCPCS: 59025; G0378; G0379 ==

== ENCOUNTER 2019-01-15 14:04 | Outpatient (CLI) | payer OTHER, SELFPAY ==
[2019-01-15 14:59] LABS: Appearance Urine UA CLEAR; Bilirubin Urine UA NEGATIVE (NEGATIVE); Color Urine UA YELLOW; Glucose Urine UA NEGATIVE (Negative); Ketones Urine UA NEGATIVE (NEGATIVE); Leukocyte Esterase Urine UA NEGATIVE (NEGATIVE); Nitrite Urine UA NEGATIVE (Negative); Occult Blood Urine UA NEGATIVE (Negative); Protein Urine UA NEGATIVE (Negative); Urobilinogen Urine UA 0.2 E.U./dL (0.2)
[2019-01-15 17:10] LABS: Fetal Fibronectin Positive
== END 2019-01-15 15:05 | disposition home or self-care (01) ==
LOC: LABOR 14:29 → OB 01-23 12:04
PROVIDERS: Family Provider Obstetrics & Gynecology; PCP Physician Assistant; Visit Provider Obstetrics & Gynecology
DX: O26.893 Other specified pregnancy related conditions, third trimester (principal); Z3A.34 34 weeks gestation of pregnancy; R10.2 Pelvic and perineal pain
CPT/HCPCS: 59025; 81003; 82731; G0378; G0379

== ENCOUNTER 2019-01-17 18:13 | Outpatient (CLI) | payer OTHER, SELFPAY | END 2019-01-17 19:29 | disposition home or self-care (01) | LOC: OB 01-23 12:07 | PROVIDERS: Family Provider Obstetrics & Gynecology; PCP Physician Assistant; Visit Provider Obstetrics & Gynecology | DX: O60.03 Preterm labor without delivery, third trimester (principal); Z3A.34 34 weeks gestation of pregnancy | CPT/HCPCS: 59025; G0378; G0379 ==

== ENCOUNTER → 2019-01-24 08:05 | Outpatient (CLI) | payer OTHER, SELFPAY ==
[2019-01-25 13:48] LABS: Strep Grp B PCR POS for Grp B Strep
== END ==
PROVIDERS: Family Provider Obstetrics & Gynecology; PCP Physician Assistant; Visit Provider Specialist
DX: Z34.83 Encounter for supervision of other normal pregnancy, third trimester (principal)
CPT/HCPCS: 87653

== ENCOUNTER 2019-02-05 16:56 | Observation (INO) | payer OTHER, SELFPAY ==
--- NOTE | 2019-02-05 18:45 | PM.OBTRLD ---
Visit Information Visit Information Date of evaluation: 02/05/19 Primary OB Provider: Melinda Salcido On-call OB Provider: Lauren Zimmer Reason for Evaluation: Yes rule out labor FOR[facility]LY [facility] Social History marital status: household members: spouse occupational status: employed Smoking Status: Never smoker alcohol intake: never substance use type: does not use Evaluation Evaluation Baseline heart rate: 120 Variability: Moderate (11-25) monitor accelerations: Present monitor decelerations: Absent Uterine Contraction Intensity: Mild Category of Tracing: I Cervical dilation (cm): 1 Cervical effacement (%): 60 station: -1 Diagnosis, Plan/Disposition Final Diagnosis (1) 37 weeks gestation of : Current Visit: Yes Status: Acute (2) False labor: Current Visit: Yes Status: Acute Plan/Disposition Plan: Initially with some descent, but then no cervical change after an hour. Stable for discharge home. Discussed if contractions worsening, should return. OB Disposition: home
== END 2019-02-05 19:30 | disposition home or self-care (01) ==
LOC: LABOR 16:58
PROVIDERS: Admitting Provider Obstetrics & Gynecology; Family Provider Obstetrics & Gynecology; PCP Physician Assistant; Visit Provider Obstetrics & Gynecology
DX: O47.9 False labor, unspecified (principal); Z3A.37 37 weeks gestation of pregnancy
CPT/HCPCS: 59025; 59050; G0378; G0379

== ENCOUNTER 2019-02-15 20:36 | Observation (INO) | payer OTHER, SELFPAY ==
[2019-02-15] MEDS: LACTATED RINGERS 1,000 ML 1000 ML IV ×2 (21:48→22:34)
[2019-02-15] MEDS: NIFEdipine 10 MG CAPSULE PO (21:55)
[2019-02-15 23:48] LABS: Add Manual Diff / Slide Review NO; Basophils Absolute Auto 100 /uL (0-100); Basophils Percent Auto 0.4 % (0-2); Eosinophils Absolute Auto 100 /uL (0-450); Eosinophils Percent Auto 0.4 % (2-4); Hematocrit 37.9 % (36-46); Hemoglobin 12.5 g/dL (12.0-16.0); Lymphocytes Absolute Auto 2100 /uL (1100-4500); Mean Corpuscular Hemoglobin 29.6 PG (26-34); Mean Corpuscular Volume 89.7 fL (80-100); Monocytes Absolute Auto 900 /uL (0-900); Monocytes Percent Auto 5.3 % (3-14); Neutrophils Absolute Auto 13300 /uL (1500-7000); Neutrophils Percent Auto 80.9 % (50-75); Platelet Count 162 X10^3/uL (150-400); Red Blood Cell Count 4.22 X10^6/uL (4.0-5.2); Red Cell Distribution Width 13.1 % (11.6-14.8); White Blood Cell Count 16.5 X10^3/uL (4.5-11.0)
[2019-02-15] MEDS: ZOLPIDEM 5 MG TABLET PO (23:49)
[2019-02-15] MEDS: LACTATED RINGERS 1,000 ML 100 ML IV (23:57)
--- NOTE | 2019-02-16 08:10 | PM.OBTRLD ---
Visit Information Visit Information Date of evaluation: 02/16/19 Primary OB Provider: Melinda Salcido On-call OB Provider: Melnida Salcido Reason for Evaluation: Yes rule out labor Comments/Additional reasons for admission: Patient is a 29-year-old 2 para 1 at 38-,6/7 weeks gestation with a previous section who came in with regular contractions. Initially the contractions were 3-4 minutes apart. They have spaced out considerably. This morning she had 1 contraction while on the monitor for 40 minutes. Her cervix is unchanged. She is 1.5 cm dilated, 25% effaced, -2 station [facility] Social History marital status: household members: spouse occupational status: employed Smoking Status: Never smoker alcohol intake: never substance use type: does not use Exam Vital Signs (past 8 hours): Generally: No acute distress Objective Labs Result Diagrams: 02/15/19 21:30 Labs: Laboratory Results - last 24 hr 02/15/19 02/15/19 21:30 21:30 WBC 16.5 H RBC 4.22 Hgb 12.5 Hct 37.9 MCV 89.7 MCH 29.6 MCHC 33.0 RDW 13.1 Plt Count 162 Neut % (Auto) 80.9 H Lymph % (Auto) 13.0 L [place] % (Auto) 5.3 Eos % (Auto) 0.4 L Baso % (Auto) 0.4 Neut # (Auto) 11596 H Lymph # (Auto) 2100 [place] # (Auto) 900 Eos # (Auto) 100 Baso # (Auto) 100 Blood Type AB Positive Antibody Screen Negative Evaluation Evaluation Baseline heart rate: 140 Variability: Moderate (11-25) monitor accelerations: Present monitor decelerations: Absent Uterine Contraction Intensity: Mild Category of Tracing: I Cervical dilation (cm): 1 Cervical effacement (%): 25 station: -2 Laboratory results: Laboratory Tests 02/15/19 02/15/19 21:30 21:30 WBC 16.5 H RBC 4.22 Hgb 12.5 Hct 37.9 MCV 89.7 MCH 29.6 MCHC 33.0 RDW 13.1 Plt Count 162 Neut % (Auto) 80.9 H Lymph % (Auto) 13.0 L [place] % (Auto) 5.3 Eos % (Auto) 0.4 L Baso % (Auto) 0.4 Neut # (Auto) 90130 H Lymph # (Auto) 2100 [place] # (Auto) 900 Eos # (Auto) 100 Baso # (Auto) 100 Blood Type AB Positive Antibody Screen Negative Diagnosis, Plan/Disposition Plan/Disposition Plan: Assessment: 29-year-old 2 para 1 at 38-,6/7 weeks gestation not in labor Previous section, scheduled for repeat section 02/19/2019 Plan: Follow up 02/19/19 for scheduled C/S S/S of labor reviewed OB Disposition: home
--- NOTE | 2019-02-16 08:13 | P.TNLD_ITS ---
Visit Information Visit Information Date of evaluation: 02/16/19 Primary OB Provider: Melinda Salcido On-call OB Provider: Melinda Salcido Reason for Evaluation: Yes rule out labor Comments/Additional reasons for admission: Patient is a 29-year-old 2 para 1 at 38-,6/7 weeks gestation with a previous section who came in with regular contractions. Initially the contractions were 3-4 minutes apart. They have spaced out considerably. This morning she had 1 contraction while on the monitor for 40 minutes. Her cervix is unchanged. She is 1.5 cm dilated, 25% effaced, -2 station [facility] Social History marital status: household members: spouse occupational status: employed Smoking Status: Never smoker alcohol intake: never substance use type: does not use Exam Vital Signs (past 8 hours): Generally: No acute distress Objective Labs Result Diagrams: 02/15/19 21:30 Labs: Laboratory Results - last 24 hr 02/15/19 02/15/19 21:30 21:30 WBC 16.5 H RBC 4.22 Hgb 12.5 Hct 37.9 MCV 89.7 MCH 29.6 MCHC 33.0 RDW 13.1 Plt Count 162 Neut % (Auto) 80.9 H Lymph % (Auto) 13.0 L [place] % (Auto) 5.3 Eos % (Auto) 0.4 L Baso % (Auto) 0.4 Neut # (Auto) 50985 H Lymph # (Auto) 2100 [place] # (Auto) 900 Eos # (Auto) 100 Baso # (Auto) 100 Blood Type AB Positive Antibody Screen Negative Evaluation Evaluation Baseline heart rate: 140 Variability: Moderate (11-25) monitor accelerations: Present monitor decelerations: Absent Uterine Contraction Intensity: Mild Category of Tracing: I Cervical dilation (cm): 1 Cervical effacement (%): 25 station: -2 Laboratory results: Laboratory Tests 02/15/19 02/15/19 21:30 21:30 WBC 16.5 H RBC 4.22 Hgb 12.5 Hct 37.9 MCV 89.7 MCH 29.6 MCHC 33.0 RDW 13.1 Plt Count 162 Neut % (Auto) 80.9 H Lymph % (Auto) 13.0 L [place] % (Auto) 5.3 Eos % (Auto) 0.4 L Baso % (Auto) 0.4 Neut # (Auto) 63870 H Lymph # (Auto) 2100 [place] # (Auto) 900 Eos # (Auto) 100 Baso # (Auto) 100 Blood Type AB Positive Antibody Screen Negative Diagnosis, Plan/Disposition Plan/Disposition Plan: Assessment: 29-year-old 2 para 1 at 38-,6/7 weeks gestation not in labor Previous section, scheduled for repeat section 02/19/2019 Plan: Follow up 02/19/19 for scheduled C/S S/S of labor reviewed OB Disposition: home
== END 2019-02-16 08:15 | disposition home or self-care (01) ==
PROVIDERS: Family Provider Obstetrics & Gynecology; PCP Physician Assistant
DX: O75.82 Onset (spontaneous) of labor after 37 completed weeks of gestation but before 39 completed weeks gestation, with delivery by (planned) cesarean section (principal); Z3A.38 38 weeks gestation of pregnancy
CPT/HCPCS: 59025; 59050; 85025; 86850; 86900; 86901; 96360; 96361; G0378; G0379

== ENCOUNTER 2019-02-19 05:23 | Inpatient (IN) | payer OTHER, SELFPAY ==
[2019-02-19 06:29] LABS: Add Manual Diff / Slide Review NO; Basophils Absolute Auto 0 /uL (0-100); Basophils Percent Auto 0.2 % (0-2); Eosinophils Absolute Auto 100 /uL (0-450); Eosinophils Percent Auto 0.7 % (2-4); Hematocrit 37.6 % (36-46); Hemoglobin 12.4 g/dL (12.0-16.0); Lymphocytes Absolute Auto 1900 /uL (1100-4500); Mean Corpuscular HGB Conc 33.1 % (30-36); Mean Corpuscular Hemoglobin 29.5 PG (26-34); Mean Corpuscular Volume 89.2 fL (80-100); Monocytes Absolute Auto 700 /uL (0-900); Monocytes Percent Auto 4.9 % (3-14); Neutrophils Absolute Auto 11600 /uL (1500-7000); Neutrophils Percent Auto 81.2 % (50-75); Platelet Count 152 X10^3/uL (150-400); Red Blood Cell Count 4.22 X10^6/uL (4.0-5.2); Red Cell Distribution Width 12.8 % (11.6-14.8); White Blood Cell Count 14.3 X10^3/uL (4.5-11.0)
--- NOTE | 2019-02-19 07:08 | PM.PREOP ---
Pre-operative Note Interval Note History & Physical reviewed/Exam performed by Physician: Yes Changes to H&P: No
[2019-02-19 07:35] VITALS: BP 98/52
[2019-02-19] MEDS: CEFAZOLIN 2 GM/100 ML FROZ.PIGGY IV (07:49)
--- NOTE | 2019-02-19 08:22 | SUR.OPER ---
Supine on Padded OR bed, head on pillow, safety belt at thigh, arms secured on padded arm boards at <90 degrees abduction. Bump under right buttock. Legs uncrossed with pillow under knees, gel pad to heels, tape over blanket to lower legs.
--- NOTE | 2019-02-19 08:30 | SUR.OPER ---
FHT 132 preop, live female at 0830
[2019-02-19 09:17] VITALS: BP 95/55; PULSE 72; RESP 16; TEMP 36.5; O2SAT 98
[2019-02-19 09:22] VITALS: BP 94/39; PULSE 68; RESP 16; O2SAT 99
[2019-02-19 09:27] VITALS: BP 89/56; PULSE 60; RESP 12; O2SAT 100
--- NOTE | 2019-02-19 09:27 | PM.GYNOP.1 ---
Operative Date/Time/Diagnoses Date of procedure: 02/19/19 Time of procedure: 09:27 Pre-op diagnosis: Thirty-nine weeks gestation Previous section Right upper thigh mole Keloid scar Post-op diagnosis: same Procedure: Procedures Operation Date: 02/19/19 07:45 Actual Procedures Side Surgeon p Section-Repeat, excision of right upper thigh mole Melinda Salcido MD Indications: Thirty-nine weeks gestation Keloid scar Previous section Right upper thigh mole Surgeon: Melinda Salcido Senior Qa Tester: Christel Beckham Anesthesia Type: Spinal (With Duramorph) Operative Notes Findings: Live female infant in the ALE position Normal tubes and ovaries Mild bladder to uterine adhesions Right upper thigh mole 1 cm x 0.5 cm, raised Closure Type: primary Specimen(s): other (Placenta, cord bloods, mole) Applied: catheter Estimated blood loss (mL): 500 Blood products transfused: none Procedure in detail: The patient was taken to the operating room where she was placed in the seated position. Spinal anesthesia with Duramorph was administered. The patient was then placed in the dorsal supine position with a leftward tilt. She was prepped and draped in the usual sterile fashion. A timeout was performed. After spinal analgesia was found to be adequate, the previous incision was excised in an elliptical fashion. This incision was carried down to the fascia. The fascia was nicked in the midline, and the incision extended bilaterally with the Chao scissors. The superior aspect of the fascial incision was grasped with a [place] clamps, elevated, and the underlying rectus muscles dissected off sharply and bluntly. Attention was then turned to the inferior aspect of this incision which in a similar fashion was grasped with a [place] clamps, elevated, and the underlying rectus muscles dissected off sharply and bluntly. The rectus muscles were in the midline. The peritoneum was identified, grasped between 2 hemostats, and entered sharply with the Metzenbaum scissors. This incision was extended superiorly and inferiorly with good visualization of the bladder. The bladder blade was inserted. The vesicouterine peritoneum was identified, grasped with the pickup, and entered sharply with the Metzenbaum scissors. A few bladder to uterine adhesions were taken down with the Metzenbaum scissors. This incision was extended bilaterally, and the bladder flap was created digitally. The bladder blade was reinserted. The lower uterine segment was incised in a transverse fashion with the scalpel. Upon entering the amniotic sac there was moderate amount of clear amniotic fluid. The 's head was delivered with vacuum assistance. The nose and mouth were suctioned with bulb suction. The remainder of the body delivered without difficulty. The cord was double clamped and cut. The infant was handed off to waiting RN and RT. The placenta was delivered manually. The uterus was cleared of all clots and debris. The uterine incision was repaired with #1 chromic in a running interlocking fashion, and a second layer the same suture was used for an imbricating layer. Hemostasis was achieved. The tubes and ovaries were examined and were found to be normal. The gutters were cleared of all clots and debris. The bladder flap was reapproximated using 2-0 Vicryl in a running fashion. The parietal peritoneum was closed using 2-0 Vicryl in a running fashion. The fascia was reapproximated using 0 Vicryl in a running fashion. The subcutaneous layer was copiously irrigated with warm normal saline. 5 simple interrupted sutures of 3-0 Vicryl were placed to reapproximate the subcutaneous layer. The skin was closed with 4-0 Biosyn in a subcuticular fashion. Steri-Strips were placed. An Aquacell dressing was placed. The right upper thigh mole was excised with an elliptical incision measuring 1.5 cm. Hemostasis was achieved using the Bovie. Two simple interrupted sutures were placed with by us in to reapproximate the incision. Hemostasis was achieved. This incision was covered with a Telfa and op site. The uterus was expressed of a small amount of old blood. Sponge, lap, and instrument counts were correct x-2. The patient tolerated the procedure well, and was taken to PACU in stable condition. IV fluids 1800 cc of crystalloid, 200 cc clear yellow urine. Complications: none Post-operative Condition: stable Disposition: PACU Plan for aftercare: To the center after recovery
[2019-02-19 09:32] VITALS: BP 96/59; PULSE 60; RESP 12; TEMP 36.4; O2SAT 99
--- NOTE | 2019-02-19 09:32 | P.OP_ITS ---
Operative Date/Time/Diagnoses Date of procedure: 02/19/19 Time of procedure: 09:27 Pre-op diagnosis: Thirty-nine weeks gestation Previous section Right upper thigh mole Keloid scar Post-op diagnosis: same Procedure: Procedures Operation Date: 02/19/19 07:45 Actual Procedures Side Surgeon p Section-Repeat, excision of right upper thigh mole Melinda Salcido MD Indications: Thirty-nine weeks gestation Keloid scar Previous section Right upper thigh mole Surgeon: Melinda Salcido Nuclear Medicine Chief Technologist: Christel Beckham Anesthesia Type: Spinal (With Duramorph) Operative Notes Findings: Live female infant in the ALE position Normal tubes and ovaries Mild bladder to uterine adhesions Right upper thigh mole 1 cm x 0.5 cm, raised Closure Type: primary Specimen(s): other (Placenta, cord bloods, mole) Applied: catheter Estimated blood loss (mL): 500 Blood products transfused: none Procedure in detail: The patient was taken to the operating room where she was placed in the seated position. Spinal anesthesia with Duramorph was administered. The patient was then placed in the dorsal supine position with a leftward tilt. She was prepped and draped in the usual sterile fashion. A timeout was performed. After spinal analgesia was found to be adequate, the previous incision was excised in an elliptical fashion. This incision was carried down to the fascia. The fascia was nicked in the midline, and the incision extended bilaterally with the Chao scissors. The superior aspect of the fascial incision was grasped with a Donora clamps, elevated, and the underlying rectus muscles dissected off sharply and bluntly. Attention was then turned to the inferior aspect of this incision which in a similar fashion was grasped with a Donora clamps, elevated, and the underlying rectus muscles d issected off sharply and bluntly. The rectus muscles were in the midline. The peritoneum was identified, grasped between 2 hemostats, and entered sharply with the Metzenbaum scissors. This incision was extended superiorly and inferiorly with good visualization of the bladder. The bladder blade was inserted. The vesicouterine peritoneum was identified, grasped with the pickup, and entered sharply with the Metzenbaum scissors. A few bladder to uterine adhesions were taken down with the Metzenbaum scissors. This incision was extended bilaterally, and the bladder flap was created digitally. The bladder blade was reinserted. The lower uterine segment was incised in a transverse fashion with the scalpel. Upon entering the amniotic sac there was moderate amount of clear amniotic fluid. The infant's head was delivered with vacuum assistance. The nose and mouth were suctioned with bulb suction. The remainder of the body delivered without difficulty. The cord was double clamped and cut. The was handed off to waiting RN and RT. The placenta was delivered manually. The uterus was cleared of all clots and debris. The uterine incision was repaired with #1 chromic in a running interlocking fashion, and a second layer the same suture was used for an imbricating layer. Hemostasis was achieved. The tubes and ovaries were examined and were found to be normal. The gutters were cleared of all clots and debris. The bladder flap was reapproximated using 2-0 Vicryl in a running fashion. The parietal peritoneum was closed using 2-0 Vicryl in a running fashion. The fascia was reapproximated using 0 Vicryl in a running fashion. The subcutaneous layer was copiously irrigated with warm normal saline. 5 simple interrupted sutures of 3- 0 Vicryl were placed to reapproximate the subcutaneous layer. The skin was closed with 4-0 Biosyn in a subcuticular fashion. Steri-Strips were placed. An Aquacell dressing was placed. The right upper thigh mole was excised with an elliptical incision measuring 1.5 cm. Hemostasis was achieved using the Bovie. Two simple interrupted sutures were placed with by us in to reapproximate the incision. Hemostasis was achieved. This incision was covered with a Telfa and op site. The uterus was expressed of a small amount of old blood. Sponge, lap, and instrument counts were correct x-2. The patient tolerated the procedure well, and was taken to PACU in stable condition. IV fluids 1800 cc of crystalloid, 200 cc clear yellow urine. Complications: none Post-operative Condition: stable Disposition: PACU Plan for aftercare: To the center after recovery
[2019-02-19 09:37] VITALS: BP 106/60; PULSE 64; RESP 12; O2SAT 100
[2019-02-19] MEDS: LACTATED RINGERS 1,000 ML 100 ML IV (10:47)
[2019-02-19] MEDS: KETOROLAC 30 MG/ML VIAL IV ×2 (13:13→19:34)
[2019-02-20] MEDS: KETOROLAC 30 MG/ML VIAL IV ×2 (01:43→07:58)
[2019-02-20 06:21] LABS: Hematocrit 35.7 % (36-46); Hemoglobin 11.7 g/dL (12.0-16.0)
[2019-02-20] MEDS: DOCUSATE 250 MG CAPSULE PO (08:01)
[2019-02-20] MEDS: PRENATAL VIT,CALC/IRON/FOLIC 1 TABLET 1 TAB PO (08:01)
[2019-02-20 10:16] LABS: Platelet Count 133 X10^3/uL (150-400)
[2019-02-20] MEDS: OXYCODONE/ACETAMINOPHEN 5/325 TABLET 1 TAB PO ×2 (12:13→20:08)
[2019-02-20] MEDS: IBUPROFEN 600 MG TABLET PO ×2 (14:56→21:19)
--- NOTE | 2019-02-20 21:07 | P.PNOB_ITS ---
Subjective - OB Patient comments: no complaints, pain well controlled and tolerating diet [place] baby status: doing well and nursing well [place] feeding status: exclusively breast feeding Date Patient Seen: 02/20/19 Time Patient Seen: 08:15 Exam Vital Signs (past 8 hours): Oxygen Delivery Method Room Air Narrative Exam Narrative: Generally: Patient is sitting up in bed, holding , no ac [place] distress Lungs: Clear to auscultation bilaterally Cardiovascular: Regular rate and rhythm Abdomen: Soft, good bowel sounds Fundus: Firm at U -1 Incision: Clean dry and intact with Aquacel dressing. Right upper thigh wound intact with op site Extremities: Negative Homans, no edema Objective Labs Result Diagrams: 02/20/19 05:55 Labs: Laboratory Results - last 24 hr 02/20/19 02/20/19 05:55 05:55 Hgb 11.7 L Hct 35.7 L Plt Count 133 L Assessment & Plan Plan day: 1 plan OB: routine postop care Time Spent With Patient Total time spent is greater than 50% in coordination of care (as documented) at patient's floor/unit and/or counseling patient: 15-24 minutes
[2019-02-21] MEDS: OXYCODONE/ACETAMINOPHEN 5/325 TABLET 1 TAB PO ×2 (00:11→09:51)
[2019-02-21] MEDS: IBUPROFEN 600 MG TABLET PO ×2 (03:34→09:50)
[2019-02-21 09:18] VITALS: BP 102/64; PULSE 70; RESP 16; TEMP 36.6
[2019-02-21] MEDS: PRENATAL VIT,CALC/IRON/FOLIC 1 TABLET 1 TAB PO (09:50)
[2019-02-21] MEDS: DOCUSATE 250 MG CAPSULE PO (09:50)
--- NOTE | 2019-03-14 13:21 | P.DS_ITS ---
Discharge Providers Date of admission: 02/19/19 05:23 Discharge Date: 02/21/19 Primary care physician: Evelin Thao PA-C Consults: 02/19/19 10:40 Consult to Information Technology Specialist Routine Comment: Discharge provider: Melinda Salcido MD Summary Date Patient Seen: 02/21/19 Time Patient Seen: 07:30 Procedures: Repeat section Spinal anesthesia Excision of right upper thigh mole Hospital Course: Patient is a 29-year-old 2 para 2 who presented for a scheduled repeat section on 02/19/2019. She underwent a repeat section without complication. Her postoperative course was unremarkable and she was discharged home on 02/21/2019. She was voiding without the catheter. She was tolerating a diet. She was ambulating without assistance. And her pain was well controlled. Peripartum Data Infant Delivery Method: Section Laceration description: None Episiotomy description: None Procedures: Spinal anesthesia Repeat section Excision of right upper thigh mole complications: none Status at Discharge Cognitive/behavioral status at discharge: oriented Functional status at discharge: independent ambulation Overall status at discharge: patient is progressing back to baseline Time Spent with Patient Total time spent providing and/or coordinating discharge services: Less than 30 minutes Objective Labs Result Diagrams: 02/20/19 05:55 Exam Vital Signs (past 8 hours): Oxygen Delivery Method Room Air Narrative Exam Narrative: Generally: Patient is sitting up in bed, no acute distress Lungs: Clear to auscultation bilaterally Cardiovascular: Regular rate and rhythm Fundus: Firm at U -2 Incision: Clean dry and intact with Aquacel dressing Extremities: Negative Homans, no edema Discharge Plan Discharge Plan Patient Disposition: Home Discharge comment: Call with fever, chills, redness or drainage around incision or bleeding vaginally more than a pad in an hour Discharge Med Rec/Prescriptions Prescriptions: New oxycodone-acetaminophen [Percocet] 5-325 mg tablet 1 tab PO Q4-6H PRN (Reason: pain) Qty: 20 RF: 0 Continued prenat.vits,juan josé,org-pcxu-bsfnm tablet 1 tab PO DAILY RF: 0 albuterol sulfate 90 mcg/actuation Hfa Aerosol Inhaler 1 puff INHALATION Q4-6H PRN (Reason: Allergic Symptoms) RF: 0 loratadine [Claritin] 10 mg Tablet 10 mg PO DAILY PRN (Reason: Allergic Symptoms) RF: 0 Follow up/Referrals: Melinda Salcido MD [Family Provider] - 1 Week (aquacel removal) Provider Discharge Instructions Diet: Regular Skin/Wound/Dressing Care Report to your healthcare provider any signs of infection, such as:: chills, fev er, increased pain, unusual drainage and unusual redness Dressing: Do not remove Visit Report/Discharge Packet Instructions: DI for Discharge Data Primary Care Provider: Evelin Thao Attending Provider: Melinda Salcido Admit Date/Time: 02/19/19 05:23 Discharges patient from system. Discharge Date/Time: 02/21/19 11:22
== END 2019-02-21 11:22 | disposition home or self-care (01) | DRG 788 ==
PROVIDERS: Admitting Provider Obstetrics & Gynecology; Family Provider Obstetrics & Gynecology; PCP Physician Assistant; Visit Provider Obstetrics & Gynecology
PROC: 10D00Z1 Extraction of Products of Conception, Low, Open Approach (ICD-10-PCS; CPT 59514; principal; 2019-02-19 07:45)
DX: O34.219 Maternal care for unspecified type scar from previous cesarean delivery (principal); Z3A.39 39 weeks gestation of pregnancy; Z37.0 Single live birth; O99.824 Streptococcus B carrier state complicating childbirth; D22.71 Melanocytic nevi of right lower limb, including hip
CPT/HCPCS: 59050; 59510; 59514; 85014; 85018; 85025; 85049; 86850; 86900; 86901; 88305; J0690; J1885; J2274; J2590; J2765

== ENCOUNTER → 2021-08-16 14:22 | Outpatient (CLI) | payer OTHER, SELFPAY | PROVIDERS: Family Provider Obstetrics & Gynecology; PCP Physician Assistant; Visit Provider Physician Assistant | DX: N34.3 Urethral syndrome, unspecified (principal) | CPT/HCPCS: 87086 ==

== ENCOUNTER → 2021-11-17 16:11 | Outpatient (CLI) | payer OTHER, SELFPAY ==
[2021-11-17 17:32] LABS: Follicle Stimulating Hormone 3.72 mIU/mL; Luteinizing Hormone 3.11 mIU/mL
== END ==
PROVIDERS: Family Provider Obstetrics & Gynecology; PCP Internal Medicine; Referring Provider Obstetrics & Gynecology; Visit Provider Obstetrics & Gynecology
DX: N92.6 Irregular menstruation, unspecified (principal)
CPT/HCPCS: 36415; 83001; 83002

== ENCOUNTER → 2021-11-30 11:02 | Outpatient (CLI) | payer OTHER, SELFPAY ==
--- NOTE | 2021-11-30 | DI.CT.S_ITS ---
PROCEDURE: CT ABDOMEN PELVIS W CON INDICATIONS: Unspecified abdominal pain TECHNIQUE: After the administration of oral and IV contrast, axial sections were acquired from the lung bases to the pubic symphysis. Coronal and sagittal reformats were performed. For radiation dose reduction, the following was used: automated exposure control, adjustment of mA and/or kV according to patient size. COMPARISON: None. FINDINGS: Image quality: Excellent. Lung bases: Unremarkable. Heart: No significant findings. ABDOMEN: Liver: Unremarkable. Gallbladder: Gallbladder is surgically absent. Biliary ducts: Unremarkable. Pancreas: Unremarkable. Spleen: Unremarkable. Adrenal Glands: Unremarkable. Kidneys and Ureters: Unremarkable. Stomach and Bowel: There is no bowel obstruction. No stomach or small bowel wall thickening. Questionable mild colonic wall thickening is seen particularly involving ascending colon, distal descending colon and sigmoid colon. No abscess collection. Peritoneum: No abnormal intraperitoneal fluid. No free air. Ventral Wall: No hernia. Abdominal Nodes: No retroperitoneal or mesenteric adenopathy by size criteria. Vessels: Aorta and inferior vena cava are normal in size. PELVIS: Pelvic Organs: Bilateral ovarian follicles are seen. Uterus is within normal limits. Bladder: Unremarkable. Pelvic Nodes: No enlarged lymph nodes. Miscellaneous: No inguinal hernias are seen. Bones: No suspicious bony lesion. No acute vertebral body compression fracture. IMPRESSION: 1. Finding is concerning for low-grade infectious or inflammatory colitis. No other area of abnormal bowel wall thickening. No abscess collection. No free fluid or free air. 2. Prior cholecystectomy. Dictated by: Marvin Laureano M.D. on 11/30/2021 at 14:09 Approved by: Marvin Laureano M.D. on 11/30/2021 at 15:01
== END ==
PROVIDERS: Family Provider Obstetrics & Gynecology; PCP Internal Medicine; Referring Provider Internal Medicine; Visit Provider Internal Medicine
DX: R10.9 Unspecified abdominal pain (principal); R10.2 Pelvic and perineal pain; R19.7 Diarrhea, unspecified; Z90.49 Acquired absence of other specified parts of digestive tract
CPT/HCPCS: 74177; Q9967

== ENCOUNTER → 2022-03-12 14:09 | Outpatient (CLI) | payer OTHER, SELFPAY ==
[2022-03-12 14:41] LABS: Add Manual Diff / Slide Review NO; Basophils Absolute Auto 0 /uL (0-100); Basophils Percent Auto 0.2 % (0-2); Eosinophils Absolute Auto 100 /uL (0-450); Eosinophils Percent Auto 0.5 % (2-4); Hematocrit 40.2 % (36-46); Hemoglobin 13.8 g/dL (12.0-16.0); Lymphocytes Absolute Auto 1600 /uL (1100-4500); Lymphocytes Percent Auto 13.8 % (25-40); Mean Corpuscular HGB Conc 34.4 % (30-36); Mean Corpuscular Hemoglobin 29.6 PG (26-34); Monocytes Absolute Auto 500 /uL (0-900); Neutrophils Absolute Auto 9400 /uL (1500-7000); Neutrophils Percent Auto 81.5 % (50-75); Platelet Count 173 X10^3/uL (150-400); Red Blood Cell Count 4.67 X10^6/uL (4.0-5.2); White Blood Cell Count 11.5 X10^3/uL (4.5-11.0)
[2022-03-12 16:06] LABS: Appearance Urine UA CLEAR; Bilirubin Urine UA NEGATIVE (NEGATIVE); Color Urine UA YELLOW; Glucose Urine UA NEGATIVE (Negative); Ketones Urine UA NEGATIVE (NEGATIVE); Leukocyte Esterase Urine UA NEGATIVE (NEGATIVE); Nitrite Urine UA NEGATIVE (Negative); Occult Blood Urine UA NEGATIVE (Negative); Protein Urine UA NEGATIVE (Negative); Specific Gravity Urine UA <=1.005 (1.000-1.035); Urobilinogen Urine UA 0.2 E.U./dL (0.2)
[2022-03-12 20:49] LABS: Urine N gonorrhoeae NOT DETECTED
[2022-03-12 20:52] LABS: Urine Chlamydia NOT DETECTED
[2022-03-13 05:11] LABS: Varicella IgG Antibody 1692 index (Immune >165)
[2022-03-13 07:36] LABS: RPR Screen Non Reactive (Non Reactive)
[2022-03-15 17:01] LABS: HIV 1 & 2 Ab/Ag 4th Gen Combo NEGATIVE (NEGATIVE); Hep C Virus Ab w/Reflex Quant NEGATIVE s/c (NEGATIVE); Hepatitis B Surface Antigen NEGATIVE s/c (NEGATIVE); Rubella Antibody IgG 93.3 IU/mL (>15)
== END ==
PROVIDERS: Family Provider Obstetrics & Gynecology; PCP Internal Medicine; Referring Provider Obstetrics & Gynecology; Visit Provider Obstetrics & Gynecology
DX: Z34.81 Encounter for supervision of other normal pregnancy, first trimester (principal); Z3A.08 8 weeks gestation of pregnancy
CPT/HCPCS: 36415; 80055; 81003; 86787; 86803; 86850; 86900; 86901; 87086; 87389; 87491; 87591

== ENCOUNTER → 2022-07-19 09:40 | Outpatient (CLI) | payer OTHER, SELFPAY ==
[2022-07-19 13:44] LABS: Add Manual Diff / Slide Review NO; Basophils Absolute Auto 0 /uL (0-100); Basophils Percent Auto 0.3 % (0-2); Eosinophils Absolute Auto 0 /uL (0-450); Eosinophils Percent Auto 0.1 % (2-4); Hemoglobin 14.1 g/dL (12.0-16.0); Lymphocytes Absolute Auto 1000 /uL (1100-4500); Lymphocytes Percent Auto 19.8 % (25-40); Mean Corpuscular HGB Conc 33.7 % (30-36); Mean Corpuscular Hemoglobin 29.9 PG (26-34); Mean Corpuscular Volume 88.8 fL (80-100); Monocytes Absolute Auto 600 /uL (0-900); Monocytes Percent Auto 12.1 % (3-14); Neutrophils Absolute Auto 3400 /uL (1500-7000); Neutrophils Percent Auto 67.7 % (50-75); Platelet Count 161 X10^3/uL (150-400); Red Blood Cell Count 4.73 X10^6/uL (4.0-5.2); Red Cell Distribution Width 12.3 % (11.6-14.8)
[2022-07-19 17:10] LABS: Alanine Aminotransferase 21 IU/L (<35); Albumin 4.3 g/dL (3.5-5.0); Albumin Globulin Ratio 1.7 (1.0-2.8); Alkaline Phosphatase 88 U/L (38-126); Aspartate Aminotransferase 27 IU/L (14-36); BUN Creatinine Ratio 9.9 (6-22); Bilirubin Total 0.1 mg/dL (0.2-1.3); Blood Urea Nitrogen 9 mg/dL (7-17); Calcium 8.8 mg/dL (8.4-10.2); Carbon Dioxide 23 mmol/L (22-32); Chloride 104 mmol/L (98-107); Cholesterol 106 mg/dL (140-199); Estimated Glomerular Filt Rate > 60 mL/min (>60); Globulin 2.5 g/dL (1.7-4.1); HDL Cholesterol 59 mg/dL (40-60); HEMOLYSIS < 15 (0-50); LDL Cholesterol Calculated 31 mg/dL (<100); Sodium 139 mmol/L (137-145); Total Protein 6.8 g/dL (6.3-8.2); Triglycerides 82 mg/dL (35-150)
[2022-07-19 17:22] LABS: Glucose 68 mg/dL (70-100)
[2022-07-19 17:29] LABS: Thyroid Stimulating Hormone 1.78 uIU/mL (0.47-4.68)
== END ==
PROVIDERS: Family Provider Obstetrics & Gynecology; PCP Internal Medicine; Referring Provider Internal Medicine; Visit Provider Internal Medicine
DX: N28.9 Disorder of kidney and ureter, unspecified (principal); Z13.220 Encounter for screening for lipoid disorders; Z13.29 Encounter for screening for other suspected endocrine disorder; O36.4XX0 Maternal care for intrauterine death, not applicable or unspecified
CPT/HCPCS: 36415; 80053; 80061; 84443; 85025; 86769